=== PATIENT | male | born 1980 | race Caucasian/White ===

== ENCOUNTER 2023-10-08 20:59 | Outpatient (REF) | payer MEDICARE, MEDICAID, SELFPAY ==
[2023-10-08 22:00] LABS: Phosphorus 1.5 mg/dL (2.6-4.7)
[2023-10-08 23:10] LABS: Potassium 2.5 mmol/L (3.5-5.1)
== END 2023-10-08 21:00 | disposition home or self-care (01) ==
LOC: LAB 20:59
DX: N18.9 Chronic kidney disease, unspecified (principal)
CPT/HCPCS: 36415; 84100; 84132